=== PATIENT | male | born 1960 | race Caucasian/White ===

== ENCOUNTER 2021-05-06 20:49 | Emergency (ER) | payer OTHER, SELFPAY ==
[2021-05-06 21:01] VITALS: BP 145/93; PULSE 70; RESP 16; TEMP 36.8; O2SAT 97; BMI 25.1
--- NOTE | 2021-05-06 21:03 | DI.RAD.S_ITS ---
PROCEDURE: XR HAND LT MIN 3V INDICATIONS: punched trailer TECHNIQUE: 3 views of the hand(s) acquired. COMPARISON: None. FINDINGS: Bones: Mildly comminuted displaced fracture of the distal left 5th metacarpal with volar angulation of the distal fracture fragment. Moderate overlying soft tissue swelling. Carpal bones are normally aligned. No suspicious bony lesions. Soft tissues: No suspicious soft tissue calcifications. IMPRESSION: Distal left 5th metacarpal fracture. Dictated by: Mars Peterson M.D. on 05/06/2021 at 21:18 Approved by: Mars Peterson M.D. on 05/06/2021 at 21:19
[2021-05-06] MEDS: LIDO 1%/SOD BICARB 8.4% (10ML) 10 ML SYRINGE INJ (21:25)
--- NOTE | 2021-05-06 21:49 | ED_ITS ---
HPI - Extremity Injury (Upper) General Chief Complaint: Extremity Injury, Upper Stated Complaint: left hand injury Time Seen by Provider: 05/06/21 21:06 Source: patient and family Mode of arrival: Ambulatory Limitations: no limitations History of Present Illness HPI narrative: 61-year-old male nonsmoker with noncontributory medical history presents with a chief complaint of a left hand injury after he punched a boat motor. He developed immediate pain and swelling over the lateral hand. He denies any numbness or tingling in his fingers nor any pain in the wrist or elbow. There are no wounds or lacerations. He has increased pain with range of motion MD complaint: injury to: left Onset (ago): hour(s) Other Extremity Injury: Left: hand Other injuries: none Handedness: left Place: home Severity: moderate Relieving factors: immobilization Exacerbating factors: movement of extremity Context: direct blow Associated symptoms: denies other symptoms Related Data Allergies Allergy/AdvReac Type Severity Reaction Status Date / Time No Known Drug Allergies Allergy Verified 05/06/21 21:01 Review of Systems Constitutional Constitutional: Denies chills, Denies fatigue, Denies fever(s), Denies frequent falls, Denies lethargy and Denies weakness Eyes Eyes: Denies change in vision, Denies eye discharge, Denies irritation and Denies loss of vision ENT Ears, Nose, Mouth, and Throat: Denies change in voice, Denies dizziness, Denies neck pain, Denies sore throat and Denies throat swelling Cardiovascular Cardiovascular: Denies chest pain, Denies irregular heart rhythm, Denies lightheadedness, Denies palpitations, Denies dyspnea, Denies dyspnea on exertion and Denies orthopnea Respiratory Respiratory: Denies cough, Denies dyspnea, Denies dyspnea on exertion and Denies wheezing Gastrointestinal Gastrointestinal: Denies abdominal pain, Denies change in bowel habits, Denies diarrhea, Denies nausea and Denies vomiting Musculoskeletal Musculoskeletal: Reports deformity, Denies neck pain and Denies numbness Integumentary/Breasts Skin/Breast: Denies pruritus, Denies erythema, Denies rash and Denies wounds Neurologic Neurologic: Denies behavioral changes, Denies confusion, Denies dizziness, Denies frequent falls, Denies loss of vision, Denies numbness and Denies weakness Psychiatric Psychiatric: Denies anxiety, Denies behavioral changes, Denies confusion, Denies depression, Denies homicidal ideation and Denies suicidal ideation Endocrine Endocrine: Denies fatigue, Denies flushing and Denies palpitations Hematologic/Lymphatic Hematologic/Lymphatic: Denies easy bruising Allergic/Immunologic Allergic/Immunologic: Denies urticaria, Denies throat swelling and Denies wheezing Patient History Social History Smoking Status: Never smoker Smoking Status: Never smoker alcohol intake frequency: 0-2 drinks per day Substance Use Type: does not use Exam Narrative Exam Narrative: GEN: AOx3 and in mild distress EYES: Pupils are equal, round, and reactive to light and accommodation. Extraoccular muscles are intact bilaterally. There is no subconjunctival hemorrhage or exudate. CHEST: Lungs are clear to auscultation bilaterally and free of wheezes, rales, or rhonchi. Heart rate is regular rhythm, there are no murmurs, clicks, rubs, or gallops. There is no chest wall tenderness. ABD: Abdomen is soft and nontender. There is no guarding or rebound. Bowel sounds are normal in all 4 quadrants. There is no mass or organomegaly. EXT: Decreased range of motion secondary to pain of left hand with swelling overlying the 5th metacarpal. This is closed, isolated and neurovascularly intact, no pain over the wrist SKIN: Warm, pink, and dry. No erythema or rash Initial Vital Signs Initial Vital Signs: Vital Signs Temperature 98.3 F 05/06/21 21:01 Pulse Rate 70 05/06/21 21:01 Respiratory Rate 16 05/06/21 21:01 Blood Pressure 145/93 H 05/06/21 21:01 Pulse Oximetry 97 05/06/21 21:01 Procedures Nerve Block Nerve Block 1: Time out performed: Yes Local Anesthetic: lidocaine 1% and with bicarb Amount of anesthesia used (mL): 6 Side: left Nerve Blocks: hematoma block Procedure Successful: Yes Patient Tolerated Procedure: Well Complications: none Orthopedic Fracture Reduction Fracture #1: Time Out Performed: Yes Side: left Fracture Reduction Location: metacarpal Analgesia: hematoma block Technique: direct manipulation Post-reduction neuro exam: intact Post-reduction vascular exam: intact Splint Applied: Yes Patient Tolerated Procedure: Well Orthopedic Splinting/Casting Injury #1: Side: left Upper Extremity Injury Location: hand Upper Extremity Immobilizer: ulnar gutter (intrinsic plus) Post splinting neuro exam: intact Post splinting vascular exam: intact Placed by: Nursing Course Orders Ordered: ED Orders 05/06/21 21:03 XR hand LT min 3V Stat Discontinued Medications Lidocaine/Sodium Bicarbonate (Lido 1%/Sod Bicarb 8.4% (10ml) 10 Ml Syringe) 10 ml INJ NOW ONE Stop: 05/06/21 21:20 Last Admin: 05/06/21 21:25 Dose: 10 ml Documented by: SHAYNE Vital Signs Vital signs: Vital Signs - 8 hr 05/06/21 21:01 05/06/21 22:03 Temperature 98.3 F Pulse Rate 70 69 Respiratory Rate 16 16 Blood Pressure 145/93 H 140/89 Pulse Oximetry 97 100 MDM - Extremity Injury (Upper) Imaging Data Extremity x-ray #1: Radiologist's Impression: [address] [id number] ReportSigned Patient: Dat Harkins EMR#: [id number]: 1960cct:[id number]/Sex: 61 / MDate of Service: 05/06/21Loc: EDAccession Number: [id number] Procedure: XR hand LT min 3V Ordering Provider: Fuad Nunez D.O. PROCEDURE: XR HAND LT MIN 3V INDICATIONS: punched trailer TECHNIQUE: 3 views of the hand(s) acquired. COMPARISON: None. FINDINGS: Bones: Mildly comminuted displaced fracture of the distal left 5th metacarpal with volar angulation of the distal fracture fragment. Moderate overlying soft tissue swelling. Carpal bones are normally aligned. No suspicious bony lesions. Soft tissues: No suspicious soft tissue calcifications. IMPRESSION: Distal left 5th metacarpal fracture. Dictated by: Mars Peterson M.D. on 05/06/2021 at 21:18 Approved by: Mars Peterson M.D. on 05/06/2021 at 21:19 Discharge Plan Departure Patient Disposition: Home Clinical Impression: Fracture of fifth metacarpal bone of left hand Qualifiers: Encounter type: initial encounter Fracture type: closed Metacarpal location: shaft Fracture alignment: displaced Qualified Code(s): S62.327A - Displaced fracture of shaft of fifth metacarpal bone, left hand, initial encounter for closed fracture Instructions: DI for Fracture Activity Restrictions/Additional Instructions: *You have been diagnosed with [left fifth metacarpal fracture with minimal angulation ] *What to do: *Please continue to take your regular medications as directed. [ ] New medication prescriptions sent to your pharmacy: [ ] [ ] New medication written as a paper prescription [x ] No new medications given *Please follow up with your primary care provider in 2-3 days, call for an appointment. Let them know you were seen in the Emergency Department and that we ask that you be seen in follow up. We will electronically transmit a record of today's note if your PCP is in our system *If you do not have a primary care provider please contact the [facility] Resource line at [phone]. They will ask some questions about your medical history and help get you set up with a doctor in the community. *Return to Emergency Department if you should have any new, worsening or concerning symptoms, such as [fever greater than 101 F, shaking chills, worsening pain, persistent vomiting or other bothersome symptoms] Referrals: Amy Frederick MD [Physician] -
[2021-05-06 22:03] VITALS: BP 140/89; PULSE 69; RESP 16; O2SAT 100
== END 2021-05-06 22:04 | disposition home or self-care (01) ==
PROVIDERS: Emergency Provider Emergency Medicine
DX: S62.327A Displaced fracture of shaft of fifth metacarpal bone, left hand, initial encounter for closed fracture (principal); W22.8XXA Striking against or struck by other objects, initial encounter
CPT/HCPCS: 26742; 29125; 64450; 73130; 99284

== ENCOUNTER 2022-05-10 00:15 | Emergency (ER) | payer OTHER, SELFPAY ==
[2022-05-10 00:31] VITALS: BP 132/72; PULSE 102; RESP 22; TEMP 38.6; O2SAT 95
[2022-05-10 01:01] LABS: COVID19 -Nasal RAPID POSITIVE (Negative)
--- NOTE | 2022-05-10 01:14 | ED.URI ---
HPI - URI/Sore Throat General Chief Complaint: Fever Stated Complaint: cough, cold, fever, headache Time Seen by Provider: 05/10/22 00:37 Source: patient Mode of arrival: Ambulatory History of Present Illness HPI Narrative: Patient is a 8-year-old healthy male presents with fever cough headache. He says he has actually had a couple of cold over the last 3 weeks the 1st 1 lasted a few days he had fever it went away he felt better happened again he improved after few days this time he felt worse than he ever has fever headache sore throat mild cough. Ongoing for last 24 hours. Said he actually was able to work yesterday without any issue but today symptoms got much worse. He is noted to be febrile here in the ER. He said he took aspirin prior to arrival. Related Data Previous Rx's Medication Instructions Recorded nirmatrelvir 300 mg (150 mg x 2 tab PO QAM AND QPM 5 days #20 05/10/22 2)-ritonavir 100 mg tablet (EUA) tabs (Paxlovid 300 mg () Allergies Allergy/AdvReac Type Severity Reaction Status Date / Time No Known Drug Allergies Allergy Verified 05/06/21 21:01 Review of Systems Review of Systems Narrative: GENERAL: see HPI HEENT: See HPI RESPIRATORY: See HPI CARDIOVASCULAR: Denies chest pain, palpitations GASTROINTESTINAL: Denies nausea, vomiting MUSCULOSKELETAL: Denies extremity pain, injury SKIN: No rash, no laceration, no pruritus NEUROLOGIC: Denies weakness, dizziness, headache, numbness 8 point review of systems is negative except for those stated above and HPI Patient History Social History Smoking Status: Never smoker Smoking Status: Never smoker alcohol intake frequency: 0-2 drinks per day Substance Use Type: does not use Exam Initial Vital Signs Initial Vital Signs: Vital Signs Temperature 101.4 F H 05/10/22 00:31 Pulse Rate 102 H 05/10/22 00:31 Respiratory Rate 22 05/10/22 00:31 Blood Pressure 132/72 05/10/22 00:31 Pulse Oximetry 95 05/10/22 00:31 Oxygen Delivery Method 05/10/22 00:31 GENERAL: 62-year-old male appears a feel unwell but no acute distress HEENT: Head atraumatic,EOMI, pupils reactive, face symmetric, moist mucous membranes CARDIOVASCULAR: Regular rate and rhythm without murmurs, rubs or gallops. RESPIRATORY: Breath sounds equal bilaterally, no wheezes rales or rhonchi. ABDOMEN: Soft, nontender. Normoactive bowel sounds all 4 quadrants. No guarding or rebound. EXTREMITIES: Normal range of motion, no clubbing or edema. Neurovascularly intact NEUROLOGICAL: Alert and oriented x4. SKIN: Warm, dry, no laceration, no petechiae, no rashes or lesions. Course Orders Ordered: ED Orders 05/10/22 00:44 COVID19 -Nasal RAPID/Pre-Proc Stat Discontinued Medications Acetaminophen (Acetaminophen 325 Mg Tablet) 975 mg PO NOW ONE Stop: 05/10/22 01:26 Last Admin: 05/10/22 01:36 Dose: 975 mg Documented By: SARAH Vital Signs Vital signs: Vital Signs - 8 hr 05/10/22 00:31 05/10/22 01:41 Temperature 101.4 F H Pulse Rate 102 H 89 Respiratory Rate 22 18 Blood Pressure 132/72 Pulse Oximetry 95 98 Oxygen Delivery Method Room Air Room Air MDM - URI/Sore Throat Lab Data Labs: Lab Results 05/10/22 Range/Units 00:44 SARS-CoV-2 (PCR) Positive H (Negative) MDM Narrative Medical decision making narrative: The patient is found to be COVID positive. He said he took a COVID test 3 weeks ago was negative at that time he has repeated it. He is fully vaccinated. Discharge Plan Departure Patient Disposition: Home Clinical Impression: COVID-19 Instructions: DI for COVID-19 (Suspected or Confirmed ) Activity Restrictions/Additional Instructions: *You have been diagnosed with COVID-19 *What to do: Rest and monitor symptoms. Follow work policy and protocol before returning. *Continue to take medications as directed Paxlovid take as directed, this is emergency use authorization only side effects are not yet known Tylenol 1000 mg every 6 hours if needed for [id number] pain or fever Ibuprofen 600 mg every 6-8 hours if needed for pain or fever *Follow up with your primary care provider in 2-3 days or call [phone] *Return to ER if you should have inability to tolerate fluids, increasing shortness of breath, oxygen less than 90% or any new, worsening or concerning symptoms Prescriptions: New Paxlovid (EUA) 150 mg x 2- 100 mg tablet 2 tab PO QAM AND QPM 5 Days Qty: 20 0RF Visit Report Forms: Patient Portal/API
[2022-05-10] MEDS: ACETAMINOPHEN 325 MG TABLET 975 MG PO (01:36)
[2022-05-10 01:41] VITALS: PULSE 89; RESP 18; O2SAT 98
== END 2022-05-10 01:41 | disposition home or self-care (01) ==
PROVIDERS: Emergency Provider Emergency Medicine
DX: U07.1 COVID-19 (principal)
CPT/HCPCS: 87635; 99282; 99283; C9803

== ENCOUNTER → 2022-12-11 08:29 | Outpatient (CLI) | payer OTHER, SELFPAY ==
--- NOTE | 2022-12-11 08:31 | DI.RAD.S_ITS ---
PROCEDURE: XR RIBS LT MIN 3V W CXR1V INDICATIONS: Rib injury TECHNIQUE: 4 views of the left ribs were acquired, along with a single view chest. COMPARISON: None. FINDINGS: Surgical changes and devices: None. Bones and chest wall: Left 11th nondisplaced rib fracture. No dislocations. No suspicious bony lesions. Overlying soft tissues appear unremarkable. Lungs and pleura: No pleural effusions or pneumothorax. Lungs appear clear. Mediastinum: Mediastinal contours appear normal. Heart size is normal. IMPRESSION: Left 11th nondisplaced rib fracture. Dictated by: José Miguel Claros M.D. on 12/11/2022 at 9:01 Approved by: José Miguel Claros M.D. on 12/11/2022 at 9:04
== END ==
PROVIDERS: PCP Family Medicine; Referring Provider Nurse Practitioner Family; Visit Provider Nurse Practitioner Family
DX: S22.32XA Fracture of one rib, left side, initial encounter for closed fracture (principal); R07.81 Pleurodynia
CPT/HCPCS: 71101

== ENCOUNTER → 2023-12-09 12:08 | Outpatient (CLI) | payer OTHER, SELFPAY ==
[2023-12-09 12:52] LABS: Influenza A - CEPHEID Flu A POSITIVE (NEGATIVE); Influenza B - CEPHEID Flu B NEGATIVE (NEGATIVE); Respiratory Syncytial Virus Negative (Negative)
[2023-12-09 12:58] LABS: COVID-19 CEPHEID 4-PLEX PCR Negative (Negative)
== END ==
PROVIDERS: PCP Family Medicine; Visit Provider Nurse Practitioner Family
DX: R05.1 Acute cough (principal)
CPT/HCPCS: 0241U

== ENCOUNTER 2024-08-20 16:05 | Emergency (ER) | payer OTHER, SELFPAY ==
[2024-08-20 16:08] VITALS: BP 143/87; PULSE 78; RESP 14; TEMP 36.9; O2SAT 100; BMI 24.7
[2024-08-20 16:25] LABS: Add Manual Diff / Slide Review NO; Basophils Absolute Auto 0 /uL (0-100); Basophils Percent Auto 0.4 % (0-2); Eosinophils Absolute Auto 0 /uL (0-450); Eosinophils Percent Auto 0.3 % (2-4); Hematocrit 45.3 % (41-53); Hemoglobin 15.4 g/dL (13.5-17.5); Lymphocytes Absolute Auto 1800 /uL (1100-4500); Lymphocytes Percent Auto 19.5 % (25-40); Mean Corpuscular Hemoglobin 33.5 PG (26-34); Mean Corpuscular Volume 98.6 fL (80-100); Monocytes Absolute Auto 800 /uL (0-900); Monocytes Percent Auto 8.6 % (3-14); Neutrophils Absolute Auto 6500 /uL (1500-7000); Neutrophils Percent Auto 71.2 % (50-75); Platelet Count 261 X10^3/uL (150-400); Red Cell Distribution Width 12.7 % (11.6-14.8); White Blood Cell Count 9.1 X10^3/uL (4.5-11.0)
[2024-08-20 16:35] LABS: PTT Partial Thromboplastin Tim 29 SECONDS (25.1-36.5)
[2024-08-20 16:36] LABS: Alanine Aminotransferase 49 IU/L (<50); Albumin 4.5 g/dL (3.5-5.0); Albumin Globulin Ratio 1.4 (1.0-2.8); Alkaline Phosphatase 47 U/L (38-126); Aspartate Aminotransferase 39 IU/L (17-59); Bilirubin Total 0.9 mg/dL (0.2-1.3); Blood Urea Nitrogen 12 mg/dL (9-20); Calcium 9.3 mg/dL (8.4-10.2); Carbon Dioxide 27 mmol/L (22-32); Chloride 102 mmol/L (98-107); Estimated Glomerular Filt Rate > 60 mL/min (>60); Globulin 3.2 g/dL (1.7-4.1); Glucose 144 mg/dL (80-110); HEMOLYSIS < 15 (0-50); Potassium 3.9 mmol/L (3.4-5.1); Sodium 135 mmol/L (137-145); Total Protein 7.7 g/dL (6.3-8.2)
--- NOTE | 2024-08-20 16:36 | EKG_ITS ---
[place] [address] [place] [id number] Test Date: 2024-08-20 Pat Name: Dat Harkins Department: 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
[2024-08-20] MEDS: PANTOPRAZOLE 40 MG VIAL 80 MG IV (16:37)
--- NOTE | 2024-08-20 16:38 | EKG_ITS ---
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
[2024-08-20 16:40] VITALS: BP 119/74; PULSE 66; O2SAT 99
[2024-08-20 17:00] VITALS: BP 121/76; PULSE 61; RESP 17; O2SAT 100
--- NOTE | 2024-08-20 17:03 | ED.GIBLEED ---
HPI - GI Bleed General Chief complaint: GI Bleed Stated complaint: WIC; Food Poisoning or Flu, Blood in Stool Time Seen by Provider: 08/20/24 16:34 Source: patient Mode of arrival: Ambulatory History of Present Illness HPI Narrative: Patient is a 64 year old male no significant past medical history comes into the ED from home for evaluation of nausea vomiting abdominal pain diarrhea as well as bright red blood per rectum states that his symptoms started around 3:00 a.m. today. States that he had multiple episodes of nonbloody diarrhea initially, however he states that he had 1 episode in which he noticed some bright red blood after moving his bowels. Did not have any hematemesis or coffee-ground emesis. States that he has not had any recent travel did not eat anything new. States that he is wondering if this might have been secondary to food poisoning. However he states that he ate everything that family did yesterday without any issues. No recent travel no known sick contacts. Related Data Home Medications Medication Instructions Recorded Confirmed No Known Home Medications 12/11/22 12/09/23 Allergies Allergy/AdvReac Type Severity Reaction Status Date / Time No Known Drug Allergies Allergy Verified 08/20/24 16:08 Review of Systems Review of Systems Narrative: General: Denies fever, chills, weight loss HEENT: Denies headache, eye drainage, eye irritation, head trauma, sore throat, voice change Cardiovascular: Denies any chest pain, palpitations, shortness of breath, tachycardia Respiratory: Denies any shortness of breath, cough, wheeze, stridor GI/: Positive for abdominal pain, nausea, vomiting, diarrhea, bright red blood per rectum, denies melanotic stools, urinary frequency, urinary retention, dysuria, hematuria MSK: Denies any joint pain, muscle pains, swelling Skin: Denies any rashes, lesions, discoloration Neuro: Denies any headache, lightheadedness, dizziness, fainting, weakness Psych: Denies SI/HI Patient History Social History Smoking Status: Never smoker Smoking Status: Never smoker alcohol intake frequency: 3 or more drinks per day Alcohol type: beer Substance Use Type: does not use Exam Narrative Exam Narrative: General: Cooperative, comfortable, well-developed, not in acute distress HEENT: Normocephalic, atraumatic, PERRLA, normal sclera, eyelids normal, Neck: Active full range of motion, atraumatic Chest: Normal to inspection, negative crepitus, no overlying erythema ecchymosis Respiratory: Normal respiratory effort, not in acute respiratory distress, clear to auscultation bilaterally negative cough, wheeze, tachypnea, rhonchi, rales Cardiology: Regular rate rhythm negative gallop, murmur, rubs GI/: Normal to inspection, soft, nonrigid, mild tenderness to palpation diffusely, exam deferred MSK: Full range of active range of motion of all 4 extremities, atraumatic Skin: No rashes lesions noted Neuro: Alert awake oriented x3, moves all 4 extremities spontaneously, cranial nerves intact, able to answer all questions appropriately follows commands appropriately Psych: Cooperative, negative suicidal or homicidal ideations Initial Vital Signs Initial Vital Signs: Vital Signs Temperature 98.5 F 08/20/24 16:08 Pulse Rate 78 08/20/24 16:08 Respiratory Rate 14 08/20/24 16:08 Blood Pressure 143/87 H 08/20/24 16:08 Pulse Oximetry 100 08/20/24 16:08 Oxygen Delivery Method Room Air 08/20/24 16:08 Course Orders Ordered: ED Orders 08/20/24 16:11 EKG-12 Lead Stat 08/20/24 16:15 Complete Blood Count AUTO DIFF Stat Comprehensive Metabolic Panel Stat PTT Partial Thromboplastin Jorge A Stat Prothrombin Time INR Stat Type and Screen Stat 08/20/24 17:21 CT abdomen pelvis w con Stat 08/20/24 17:24 Covid-19 + FLU A/B + RSV - PCR Stat Ondansetron HCl (Ondansetron 4 Mg/2 Ml Inj) 4 mg IV NOW PRN PRN Reason: Nausea And Vomiting Ondansetron HCl (Ondansetron 4 Mg Odt) 4 mg SL NOW PRN PRN Reason: Nausea And Vomiting Discontinued Medications Pantoprazole Sodium (Pantoprazole 40 Mg Vial) 80 mg IV NOW ONE Stop: 08/20/24 16:12 Last Admin: 08/20/24 16:37 Dose: 80 mg Documented By: FRANNY Vital Signs Vital signs: Vital Signs - 8 hr 08/20/24 16:08 08/20/24 16:40 08/20/24 16:40 Temperature 98.5 F Pulse Rate 78 66 Respiratory Rate 14 Blood Pressure 143/87 H 119/74 Pulse Oximetry 100 99 Oxygen Delivery Method Room Air 08/20/24 17:00 08/20/24 17:00 08/20/24 18:00 Temperature Pulse Rate 61 60 Respiratory Rate 17 16 Blood Pressure 121/76 Pulse Oximetry 100 99 Oxygen Delivery Method 08/20/24 18:09 Temperature Pulse Rate Respiratory Rate Blood Pressure 142/82 H Pulse Oximetry Oxygen Delivery Method MDM - GI Bleed Differential Diagnosis Differential diagnosis: Likely hemorrhoids, infectious diarrhea, gastritis and other (Electrolyte abnormality) Lab Data 08/20/24 16:15 08/20/24 16:15 Labs: Lab Results 08/20/24 08/20/24 Range/Units 16:15 17:24 WBC 9.1 (4.5-11.0) X10^3/uL RBC 4.60 (4.5-5.9) X10^6/uL Hgb 15.4 (13.5-17.5) g/dL Hct 45.3 (41-53) % MCV 98.6 (80-100) fL MCH 33.5 (26-34) PG MCHC 34.0 (30-36) % RDW 12.7 (11.6-14.8) % Plt Count 261 (150-400) X10^3/uL Neut % (Auto) 71.2 (50-75) % Lymph % (Auto) 19.5 L (25-40) % [place] % (Auto) 8.6 (3-14) % Eos % (Auto) 0.3 L (2-4) % Baso % (Auto) 0.4 (0-2) % Neut # (Auto) 6500 (0747-5568) /uL Lymph # (Auto) 1800 (1527-7747) /uL [place] # (Auto) 800 (0-900) /uL Eos # (Auto) 0 (0-450) /uL Baso # (Auto) 0 (0-100) /uL PT 11.0 (9.4-12.5) SECONDS INR 1.0 (0.9-1.3) APTT 29 (25.1-36.5) SECONDS Sodium 135 L (137-145) mmol/L Potassium 3.9 (3.4-5.1) mmol/L Chloride 102 (98-107) mmol/L Carbon Dioxide 27 (22-32) mmol/L BUN 12 (9-20) mg/dL Creatinine 0.75 (0.66-1.25) mg/dL Estimated GFR > 60 (>60) mL/min BUN/Creatinine Ratio 16.0 (6-22) Glucose 144 H (80-110) mg/dL Calcium 9.3 (8.4-10.2) mg/dL Total Bilirubin 0.9 (0.2-1.3) mg/dL AST 39 (17-59) IU/L ALT 49 (<50) IU/L Alkaline Phosphatase 47 (38-126) U/L Total Protein 7.7 (6.3-8.2) g/dL Albumin 4.5 (3.5-5.0) g/dL Globulin 3.2 (1.7-4.1) g/dL Albumin/Globulin Ratio 1.4 (1.0-2.8) SARS-CoV-2 (PCR) Negative (Negative) Influenza A (RT-PCR) Flu a negative (NEGATIVE) Influenza B (RT-PCR) Flu b negative (NEGATIVE) RSV (PCR) Negative (Negative) Blood Type O Positive Antibody Screen Negative Imaging Data CT scan - abdomen/pelvis: Radiologist's Impression: PROCEDURE: CT ABDOMEN PELVIS W CON INDICATIONS: diffuse abd pain TECHNIQUE: After the administration of intravenous contrast, axial sections acquired from the lung bases to the pubic symphysis. Coronal and sagittal reformats were performed. For radiation dose reduction, the following was used: automated exposure control, adjustment of mA and/or kV according to patient size. COMPARISON: None. FINDINGS: Image quality: Diagnostic. Lower Chest: No significant findings. ABDOMEN: Liver: No solid mass. Gallbladder: No radiopaque gallstones or wall thickening. Biliary ducts: No biliary dilation. Pancreas: No ductal dilation. Spleen: Size is within normal limits. Adrenal Glands: No adrenal nodules. Kidneys and Ureters: 4 mm nonobstructing calculus at the inferior pole of the left kidney. Multiple parapelvic renal cysts. No hydronephrosis. No solid mass. No complex renal cystic lesion which requires follow up. Stomach and Bowel: Bowel wall thickening is seen in the rectum as well as the transverse, descending, and sigmoid colon. Mobile cecum is seen in the right upper quadrant. No pericecal inflammatory changes. Appendix is not well visualized. Peritoneum: No abnormal intraperitoneal fluid. No free air. Ventral Wall: No significant ventral hernia. Abdominal Nodes: No retroperitoneal or mesenteric adenopathy by size criteria. Vessels: Aorta and inferior vena cava are normal in size. PELVIS: Pelvic Organs: Unremarkable. Bladder: No bladder wall thickening, accounting for underdistention. Pelvic Nodes: No enlarged lymph nodes. Miscellaneous: Small fat containing right inguinal hernia. Bones: No aggressive osseous abnormality. Transitional spinal anatomy. 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 IMPRESSION: 1. Long segment bowel wall thickening involving the colon and rectum is suspicious for a nonspecific proctocolitis. 2. Non-obstructing 4 mm calculus at the inferior pole of the left kidney. No hydronephrosis. MDM Narrative Medical decision making narrative: Patient is a 64-year-old male no significant past medical history presents for abdominal pain nausea vomiting diarrhea and bright red blood per rectum. Started at around 3:00 a.m.. Hemoglobin stable 15.4. Chemistry normal without any signs of [place]SEM[place]. CT scan showing possible proctocolitis but no acute abnormalities, this would be consistent with patient's history of 1 episode of bright red blood per rectum with persistent diarrhea. Patient hemodynamically stable, no electrolyte abnormality will be safe for discharge home with outpatient follow up Discharge Plan Departure Patient Disposition: Home Clinical Impression: Proctocolitis Activity Restrictions/Additional Instructions: Please read the discharge instructions sheet carefully and bring all papers to all doctor follow-up visits, as it may contain information that your doctor may want to see. Disease processes change and evolve, if your symptoms worsen or if you develop any new symptoms that are concerning to you please return for evaluation. Your evaluation today does not show any evidence of any life-threatening/serious illnesses requiring admission to the hospital or surgery. Please follow-up with your doctor for re-evaluation in approximately 1 day. Seek immediate medical attention for any worrisome symptoms. Prescriptions: No Action No Known Home Medications Referrals: Shakeel Marsh MD [Primary Care Provider] - Stand Alone Forms: Patient Portal/API
--- NOTE | 2024-08-20 17:21 | DI.CT.S_ITS ---
PROCEDURE: CT ABDOMEN PELVIS W CON INDICATIONS: diffuse abd pain TECHNIQUE: After the administration of intravenous contrast, axial sections acquired from the lung bases to the pubic symphysis. Coronal and sagittal reformats were performed. For radiation dose reduction, the following was used: automated exposure control, adjustment of mA and/or kV according to patient size. COMPARISON: None. FINDINGS: Image quality: Diagnostic. Lower Chest: No significant findings. ABDOMEN: Liver: No solid mass. Gallbladder: No radiopaque gallstones or wall thickening. Biliary ducts: No biliary dilation. Pancreas: No ductal dilation. Spleen: Size is within normal limits. Adrenal Glands: No adrenal nodules. Kidneys and Ureters: 4 mm nonobstructing calculus at the inferior pole of the left kidney. Multiple parapelvic renal cysts. No hydronephrosis. No solid mass. No complex renal cystic lesion which requires follow up. Stomach and Bowel: Bowel wall thickening is seen in the rectum as well as the transverse, descending, and sigmoid colon. Mobile cecum is seen in the right upper quadrant. No pericecal inflammatory changes. Appendix is not well visualized. Peritoneum: No abnormal intraperitoneal fluid. No free air. Ventral Wall: No significant ventral hernia. Abdominal Nodes: No retroperitoneal or mesenteric adenopathy by size criteria. Vessels: Aorta and inferior vena cava are normal in size. PELVIS: Pelvic Organs: Unremarkable. Bladder: No bladder wall thickening, accounting for underdistention. Pelvic Nodes: No enlarged lymph nodes. Miscellaneous: Small fat containing right inguinal hernia. Bones: No aggressive osseous abnormality. Transitional spinal anatomy. 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 IMPRESSION: 1. Long segment bowel wall thickening involving the colon and rectum is suspicious for a nonspecific proctocolitis. 2. Non-obstructing 4 mm calculus at the inferior pole of the left kidney. No hydronephrosis. Approved by: Freddy Abdi M.D. on 08/20/2024 at 17:51
[2024-08-20 18:00] VITALS: PULSE 60; RESP 16; O2SAT 99
[2024-08-20 18:06] LABS: Influenza A - CEPHEID Flu A NEGATIVE (NEGATIVE); Influenza B - CEPHEID Flu B NEGATIVE (NEGATIVE); Respiratory Syncytial Virus Negative (Negative)
[2024-08-20 18:09] VITALS: BP 142/82
[2024-08-20 18:16] LABS: COVID-19 CEPHEID 4-PLEX PCR Negative (Negative)
== END 2024-08-20 18:29 | disposition home or self-care (01) ==
PROVIDERS: Emergency Provider Student in an Organized Health Care Education/Training Program; PCP Family Medicine
DX: K52.9 Noninfective gastroenteritis and colitis, unspecified (principal); R10.9 Unspecified abdominal pain; R11.2 Nausea with vomiting, unspecified; Z11.52 Encounter for screening for COVID-19
CPT/HCPCS: 0241U; 36415; 74177; 80053; 85025; 85610; 85730; 86850; 86900; 86901; 93005; 96374; 99284; J2470; Q9967

== ENCOUNTER 2025-03-11 12:00 | Emergency (ER) | payer OTHER, SELFPAY ==
[2025-03-11 12:17] VITALS: BP 159/83; PULSE 75; RESP 20; TEMP 36.6; O2SAT 100; BMI 19.5
--- NOTE | 2025-03-11 12:57 | ED.OVERDOSE ---
HPI - Overdose <Randee Ruffin PA-C - Last Filed: 03/11/25 18:10> General Chief Complaint: Toxicology Problem Stated Complaint: mushroom poisoning Time Seen by Provider: 03/11/25 12:27 Source: patient Mode of arrival: Ambulatory History of Present Illness HPI Narrative: Mr. Harkins is a very pleasant 65-year-old gentleman with no reported past medical history who presents to the emergency department 3 hours after consuming mushrooms from his backyard, now concern for mushroom poisoning. Patient states he often eats mushrooms from his property, this morning he farmed and ate two mushrooms that were white with brown tops, chopped them up and put them in an omelet with eggs cheese and drank ice tea. About 1 hour after consuming the omelet he started to feel ?high?. Reports that he feels extremely euphoric, seeing abnormal visuals, and feeling slightly anxious. States that he feels the same way he did when he did acid in 1984. He is concerned that he ate hallucinogenic mushrooms accidentally. He denies any fall or head trauma, any pain, any new foods or drinks besides the mushrooms, no alcohol or other drugs. He did drive himself to the emergency department. He denies any numbness, tingling, weakness. No nausea or vomiting however he did try to self induce vomiting as he reports that he was supposed to have a very productive day. Related Data Home Medications Medication Instructions Recorded Confirmed No Known Home Medications 12/11/22 12/09/23 Allergies Allergy/AdvReac Type Severity Reaction Status Date / Time No Known Drug Allergies Allergy Verified 08/20/24 16:08 Review of Systems <Randee Ruffin PA-C - Last Filed: 03/11/25 18:10> Review of Systems ROS Unobtainable: All systems reviewed & are unremarkable except as noted in HPI and below Patient History <Randee Ruffin PA-C - Last Filed: 03/11/25 18:10> Social History Smoking Status: Never smoker Smoking Status: Never smoker alcohol intake frequency: 3 or more drinks per day Alcohol type: beer Exam <Randee Ruffin PA-C - Last Filed: 03/11/25 18:10> Narrative Exam Narrative: GENERAL: 65 year old patient appears stated age. Well-developed patient, in no acute distress. HEAD: Atraumatic. Normocephalic. EYES: PERRL. Extraocular motions intact. No scleral icterus. No injection or drainage. NECK: Trachea midline. Cervical ROM intact. CARDIOVASCULAR: Regular rate and rhythm. RESPIRATORY: ?Nonlabored respirations. ?Speaking in clear, full sentences. ?Clear to auscultation. Breath sounds equal bilaterally. No wheezes, rales, or rhonchi. ? EXTREMITIES: No edema or joint tenderness. NEURO: AOx3. ?Clear speech. ?Moves all 4 extremities appropriately. No facial asymmetry. Bilateral upper and lower extremity strength intact and sensation intact to light touch. SKIN: No rash or erythema of visible areas Initial Vital Signs Initial Vital Signs: Vital Signs Temperature 98 F 03/11/25 12:17 Pulse Rate 75 03/11/25 12:17 Respiratory Rate 20 03/11/25 12:17 Blood Pressure 159/83 H 03/11/25 12:17 Pulse Oximetry 100 03/11/25 12:17 Oxygen Delivery Method Room Air 03/11/25 12:17 <Mars Orozco MD - Last Filed: 04/17/25 00:07> Initial Vital Signs Initial Vital Signs: Vital Signs Temperature 98 F 03/11/25 12:17 Pulse Rate 75 03/11/25 12:17 Respiratory Rate 20 03/11/25 12:17 Blood Pressure 159/83 H 03/11/25 12:17 Pulse Oximetry 100 03/11/25 12:17 Oxygen Delivery Method Room Air 03/11/25 12:17 Course <Randee Ruffin PA-C - Last Filed: 03/11/25 18:10> Orders Ordered: Discontinued Medications Sodium Chloride (Normal Saline 0.9%) 1,000 mls @ 1,000 mls/hr IV BOLUS ONE Stop: 03/11/25 15:05 Last Infusion: 03/11/25 15:17 Dose: Infused Documented By: Admin: 03/11/25 14:11 Dose: 1,000 mls/hr Documented By: RAYMUNDO Consultations Consultation #1: Nursing Staff called poison control Center, they received emailed photo of the mushrooms, they believe that mushroom is possibly Amanita pantina. This mushroom species can generally cause delirium, confusion, increased heart rate, tremors, and rare scenarios it can cause convulsions, seizures. There is no antidote. In rare situations 12 hours later there can be, or state of exhaustion. They recommend benzos and supportive care, avoid atropine. Time: 15:00 Vital Signs Vital signs: Vital Signs - 8 hr 03/11/25 12:17 03/11/25 14:06 03/11/25 15:22 Temperature 98 F 97.5 F L 97.5 F L Pulse Rate 75 67 67 Respiratory Rate 20 16 20 Blood Pressure 159/83 H 124/62 122/70 Pulse Oximetry 100 98 99 Oxygen Delivery Method Room Air Room Air Room Air 03/11/25 17:30 Temperature 98.9 F Pulse Rate 65 Respiratory Rate 16 Blood Pressure 135/68 Pulse Oximetry 97 Oxygen Delivery Method Room Air <Mars Orozco MD - Last Filed: 04/17/25 00:07> Orders Ordered: Discontinued Medications Sodium Chloride (Normal Saline 0.9%) 1,000 mls @ 1,000 mls/hr IV BOLUS ONE Stop: 03/11/25 15:05 Last Infusion: 03/11/25 15:17 Dose: Infused Documented By: Admin: 03/11/25 14:11 Dose: 1,000 mls/hr Documented By: RAYMUNDO Vital Signs Vital signs: Vital Signs - 8 hr 03/11/25 12:17 03/11/25 14:06 03/11/25 15:22 Temperature 98 F 97.5 F L 97.5 F L Pulse Rate 75 67 67 Respiratory Rate 20 16 20 Blood Pressure 159/83 H 124/62 122/70 Pulse Oximetry 100 98 99 Oxygen Delivery Method Room Air Room Air Room Air 03/11/25 17:30 Temperature 98.9 F Pulse Rate 65 Respiratory Rate 16 Blood Pressure 135/68 Pulse Oximetry 97 Oxygen Delivery Method Room Air MDM - Overdose <Randee uRffin PA-C - Last Filed: 03/11/25 18:10> Medical Records Attestation: I reviewed the patient's medical records. Medical records narrative: Prior ED visit 08/20/2024, 05/10/2022, 05/06/2021. Lab Data 03/11/25 13:20 03/11/25 13:20 Labs: Lab Results 03/11/25 03/11/25 Range/Units 13:20 13:25 WBC 10.2 (4.5-11.0) X10^3/uL RBC 4.45 L (4.5-5.9) X10^6/uL Hgb 14.9 (13.5-17.5) g/dL Hct 43.4 (41-53) % MCV 97.3 (80-100) fL MCH 33.5 (26-34) PG MCHC 34.4 (30-36) % RDW 13.5 (11.6-14.8) % Plt Count 244 (150-400) X10^3/uL Neut % (Auto) 75.0 (50-75) % Lymph % (Auto) 15.5 L (25-40) % Burt % (Auto) 7.6 (3-14) % Eos % (Auto) 1.7 L (2-4) % Baso % (Auto) 0.2 (0-2) % Neut # (Auto) 7700 H (8903-4413) /uL Lymph # (Auto) 1600 (8606-0169) /uL Burt # (Auto) 800 (0-900) /uL Eos # (Auto) 200 (0-450) /uL Baso # (Auto) 0 (0-100) /uL Sodium 138 (137-145) mmol/L Potassium 4.0 (3.4-5.1) mmol/L Chloride 104 (98-107) mmol/L Carbon Dioxide 24 (22-32) mmol/L BUN 18 (9-20) mg/dL Creatinine 0.76 (0.66-1.25) mg/dL Estimated GFR > 60 (>60) mL/min BUN/Creatinine Ratio 23.7 H (6-22) Glucose 147 H (70-99) mg/dL Calcium 9.1 (8.4-10.2) mg/dL Total Bilirubin 0.7 (0.2-1.3) mg/dL AST 52 (17-59) IU/L ALT 53 H (<50) IU/L Alkaline Phosphatase 55 (38-126) U/L Total Protein 7.2 (6.3-8.2) g/dL Albumin 4.5 (3.5-5.0) g/dL Globulin 2.7 (1.7-4.1) g/dL Albumin/Globulin Ratio 1.7 (1.0-2.8) U Opiates 300ng/mL cut Negative (Negative) Ur Oxycodone Screen Negative (Negative) Urine Methadone Screen Negative (Negative) Ur Barbiturates Screen Negative (Negative) U Tricyclic Antidepress Negative (Negative) Ur Phencyclidine Scrn Negative (Negative) Ur Amphetamines Screen Negative (Negative) U Methamphetamines Scrn Negative (Negative) Ur MDMA Scrn (Ecstasy) Negative (Negative) U Benzodiazepines Scrn Negative (Negative) Urine Cocaine Screen Negative (Negative) U Marijuana (THC) Screen Negative (Negative) Urine pH Normal (Normal) Urine Specific [place] Normal (Normal) Ethyl Alcohol < 10 ( - 10) mg/dL Ur Creatinine Normal (Normal) Urine Dip Bedside Urine Glucose Negative Bedside Urine Bilirubin - Negative Bedside Urine Ketone +/- 5 Urine Specific [place] 1.025 Bedside Urine Occult Blood - Negative Bedside Urine pH 6.0 Bedside Urine Protein - Negative Bedside Urine Urobilinogen - Negative Bedside Urine Nitrite - Negative Bedside Urine Leukocytes - Negative Esterase MDM Narrative Medical decision making narrative: 65-year-old gentleman with no reported past medical history who presents to the emergency department 3 hours after consuming mushrooms from his backyard, now concern for mushroom poisoning. Differential diagnosis includes but is not limited to consumption of hallucinogenic mushroom, altered mental status, Toxicology problem, poison this mushroom, renal or liver impairment, hyperglycemia, hypoglycemia, etc. On exam patient is in no acute distress, nontoxic appearing, vital signs appropriate. He is alert and oriented, no focal neurologic deficits, however he does report feeling extremely high, euphoric after consuming wild mushrooms. Poison control was contacted, we will e-mail them a picture of the mushrooms, recommended CBC CMP in 6 hours of monitoring at this time, can use antiemetics or benzodiazepines if needed. Labs reveal normal WBC count of 10.2, hemoglobin 14.9, hematocrit 43.4. Normal platelets 244. Sodium 138, potassium 4.0. Creatinine is 0.76, BUN 18, slightly elevated BUN/creatinine ratio of 23.7, 1 L IV fluids ordered. Glucose is 147. AST 52, ALT 53 (was 49 in August 2024). Ethyl alcohol negative. Point of care UA shows trace ketones, no signs of infection. Case was discussed with the poison control, they think may have been an Amanita pantherina mushroom which is toxic, recommended supportive care fluids benzos if needed for seizure-like activity or agitation, states that typically symptoms resolve within 6 hours but can have a 12 hour rebound. Patient's symptoms continue to improve significantly throughout his emergency department stay, he refuses to stay for a full 12 hours and instead will leave after 6 hours with a family friend. I did encourage him to stay as he does live home alone however he refuses, verbalized understanding of risk. Advised to have repeat lab work in 48 hours with PCP to check kidney and liver function, strict ED return precautions discussed. Patient feeling much better, verbalized understanding of all information and risks, he is agreeable with the plan and stable for discharge home with a friend drive him. Naloxone at Discharge Meets criteria for naloxone at discharge?: No <Mars Orozco MD - Last Filed: 04/17/25 00:07> Lab Data Labs: Lab Results 03/11/25 03/11/25 Range/Units 13:20 13:25 WBC 10.2 (4.5-11.0) X10^3/uL RBC 4.45 L (4.5-5.9) X10^6/uL Hgb 14.9 (13.5-17.5) g/dL Hct 43.4 (41-53) % MCV 97.3 (80-100) fL MCH 33.5 (26-34) PG MCHC 34.4 (30-36) % RDW 13.5 (11.6-14.8) % Plt Count 244 (150-400) X10^3/uL Neut % (Auto) 75.0 (50-75) % Lymph % (Auto) 15.5 L (25-40) % Burt % (Auto) 7.6 (3-14) % Eos % (Auto) 1.7 L (2-4) % Baso % (Auto) 0.2 (0-2) % Neut # (Auto) 7700 H (3660-5088) /uL Lymph # (Auto) 1600 (8502-1489) /uL Burt # (Auto) 800 (0-900) /uL Eos # (Auto) 200 (0-450) /uL Baso # (Auto) 0 (0-100) /uL Sodium 138 (137-145) mmol/L Potassium 4.0 (3.4-5.1) mmol/L Chloride 104 (98-107) mmol/L Carbon Dioxide 24 (22-32) mmol/L BUN 18 (9-20) mg/dL Creatinine 0.76 (0.66-1.25) mg/dL Estimated GFR > 60 (>60) mL/min BUN/Creatinine Ratio 23.7 H (6-22) Glucose 147 H (70-99) mg/dL Calcium 9.1 (8.4-10.2) mg/dL Total Bilirubin 0.7 (0.2-1.3) mg/dL AST 52 (17-59) IU/L ALT 53 H (<50) IU/L Alkaline Phosphatase 55 (38-126) U/L Total Protein 7.2 (6.3-8.2) g/dL Albumin 4.5 (3.5-5.0) g/dL Globulin 2.7 (1.7-4.1) g/dL Albumin/Globulin Ratio 1.7 (1.0-2.8) U Opiates 300ng/mL cut Negative (Negative) Ur Oxycodone Screen Negative (Negative) Urine Methadone Screen Negative (Negative) Ur Barbiturates Screen Negative (Negative) U Tricyclic Antidepress Negative (Negative) Ur Phencyclidine Scrn Negative (Negative) Ur Amphetamines Screen Negative (Negative) U Methamphetamines Scrn Negative (Negative) Ur MDMA Scrn (Ecstasy) Negative (Negative) U Benzodiazepines Scrn Negative (Negative) Urine Cocaine Screen Negative (Negative) U Marijuana (THC) Screen Negative (Negative) Urine pH Normal (Normal) Urine Specific [place] Normal (Normal) Ethyl Alcohol < 10 ( - 10) mg/dL Ur Creatinine Normal (Normal) Urine Dip Bedside Urine Glucose Negative Bedside Urine Bilirubin - Negative Bedside Urine Ketone +/- 5 Urine Specific [place] 1.025 Bedside Urine Occult Blood - Negative Bedside Urine pH 6.0 Bedside Urine Protein - Negative Bedside Urine Urobilinogen - Negative Bedside Urine Nitrite - Negative Bedside Urine Leukocytes - Negative Esterase MDM Narrative Medical decision making narrative: 65-year-old gentleman with no reported past medical history who presents to the emergency department 3 hours after consuming mushrooms from his backyard, now concern for mushroom poisoning. Differential diagnosis includes but is not limited to consumption of hallucinogenic mushroom, altered mental status, Toxicology problem, poison this mushroom, renal or liver impairment, hyperglycemia, hypoglycemia, etc. On exam patient is in no acute distress, nontoxic appearing, vital signs appropriate. He is alert and oriented, no focal neurologic deficits, however he does report feeling extremely high, euphoric after consuming wild mushrooms. Poison control was contacted, we will e-mail them a picture of the mushrooms, recommended CBC CMP in 6 hours of monitoring at this time, can use antiemetics or benzodiazepines if needed. Labs reveal normal WBC count of 10.2, hemoglobin 14.9, hematocrit 43.4. Normal platelets 244. Sodium 138, potassium 4.0. Creatinine is 0.76, BUN 18, slightly elevated BUN/creatinine ratio of 23.7, 1 L IV fluids ordered. Glucose is 147. AST 52, ALT 53 (was 49 in August 2024). Ethyl alcohol negative. Point of care UA shows trace ketones, no signs of infection. Case was discussed with the poison control, they think may have been an Amanita pantherina mushroom which is toxic, recommended supportive care fluids benzos if needed for seizure-like activity or agitation, states that typically symptoms resolve within 6 hours but can have a 12 hour rebound. Patient's symptoms continue to improve significantly throughout his emergency department stay, he refuses to stay for a full 12 hours and instead will leave after 6 hours with a family friend. I did encourage him to stay as he does live home alone however he refuses, verbalized understanding of risk. Advised to have repeat lab work in 48 hours with PCP to check kidney and liver function, strict ED return precautions discussed. Patient feeling much better, verbalized understanding of all information and risks, he is agreeable with the plan and stable for discharge home with a friend drive him. -patient was seen by ZARINA in conjunction with myself, I was available for consultation and helped guide laboratory evaluation. Ultimately patient refused to stay for full observation but was agreeable to following up with outpatient repeat labs. We discussed the risks involved with this decision however at this time patient is alert well-appearing and capable of making his own medical decisions. Discharge Plan Departure Patient Disposition: Home Clinical Impression: Mushrooms causing toxic effect Instructions: DI for Altered Mental Status Activity Restrictions/Additional Instructions: Dear Torin, Today you were evaluated after side effects from consuming mushrooms. We discussed your case with poison control and the concern was that you consumed an Amanita pantherina mushroom which caused your side effects. We are very happy that you are feeling much better. Please understand that there is risk in leaving the emergency department as symptoms could rebound of the 12 hour vick. Please if you develop any new or worsening symptoms return to the emergency department or call 911 to return by ambulance. Please rest, hydrate, call your primary care doctor to have repeat lab work in the next 48-72 hours to recheck on your kidney and liver function. Please increase hydration, rest, avoid driving the car operating heavy machinery while feeling under the influence of any substances. Avoid any drugs or alcohol for at least the next few days. Please follow up with your primary care doctor within the next 2-3 days for ER follow-up. (If you do not have a PCP you can call [phone]. ?to schedule an appointment with an [facility] Primary Care Provider) IF YOU DEVELOP ANY NEW OR WORSENING SYMPTOMS, RETURN TO THE ER! Please read the attached instructions, they highlight more specific treatments and interventions for you at home. Thank you for letting me participate in your care, Randee Ruffin PA-C Prescriptions: No Action No Known Home Medications Referrals: Shakeel Marsh MD [Primary Care Provider] - Stand Alone Forms: Patient Portal/API/Survey
[2025-03-11 13:40] LABS: Add Manual Diff / Slide Review NO; Basophils Absolute Auto 0 /uL (0-100); Basophils Percent Auto 0.2 % (0-2); Eosinophils Absolute Auto 200 /uL (0-450); Eosinophils Percent Auto 1.7 % (2-4); Hematocrit 43.4 % (41-53); Hemoglobin 14.9 g/dL (13.5-17.5); Lymphocytes Absolute Auto 1600 /uL (1100-4500); Lymphocytes Percent Auto 15.5 % (25-40); Mean Corpuscular HGB Conc 34.4 % (30-36); Mean Corpuscular Hemoglobin 33.5 PG (26-34); Mean Corpuscular Volume 97.3 fL (80-100); Monocytes Absolute Auto 800 /uL (0-900); Monocytes Percent Auto 7.6 % (3-14); Neutrophils Absolute Auto 7700 /uL (1500-7000); Platelet Count 244 X10^3/uL (150-400); Red Blood Cell Count 4.45 X10^6/uL (4.5-5.9); Red Cell Distribution Width 13.5 % (11.6-14.8); White Blood Cell Count 10.2 X10^3/uL (4.5-11.0)
[2025-03-11 13:52] LABS: Ethanol (ETOH) < 10 mg/dL
[2025-03-11 14:03] LABS: Alanine Aminotransferase 53 IU/L (<50); Albumin 4.5 g/dL (3.5-5.0); Albumin Globulin Ratio 1.7 (1.0-2.8); Alkaline Phosphatase 55 U/L (38-126); Aspartate Aminotransferase 52 IU/L (17-59); BUN Creatinine Ratio 23.7 (6-22); Bilirubin Total 0.7 mg/dL (0.2-1.3); Blood Urea Nitrogen 18 mg/dL (9-20); Calcium 9.1 mg/dL (8.4-10.2); Carbon Dioxide 24 mmol/L (22-32); Chloride 104 mmol/L (98-107); Estimated Glomerular Filt Rate > 60 mL/min (>60); Globulin 2.7 g/dL (1.7-4.1); Glucose 147 mg/dL (70-99); HEMOLYSIS 25 (0-50); Sodium 138 mmol/L (137-145); Total Protein 7.2 g/dL (6.3-8.2)
[2025-03-11 14:06] VITALS: BP 124/62; PULSE 67; RESP 16; TEMP 36.4; O2SAT 98
[2025-03-11] MEDS: SODIUM CHLORIDE 0.9% 1,000 ML 1000 ML IV (14:11)
[2025-03-11 14:21] LABS: Ur Creatinine Normal (Normal); Ur Specific Gravity Normal (Normal); Urine Amphetamines Negative (Negative); Urine Cocaine Negative (Negative); Urine Opiates Negative (Negative); Urine THC Negative (Negative); Urine pH Normal (Normal)
[2025-03-11 14:22] LABS: Urine Barbiturates Negative (Negative); Urine Benzodiazepines Negative (Negative); Urine MDMA Negative (Negative); Urine Methadone Negative (Negative); Urine Oxycodone Negative (Negative); Urine Phencyclidine Negative (Negative); Urine Tricyclic Antidepressant Negative (Negative)
[2025-03-11 15:22] VITALS: BP 122/70; PULSE 67; RESP 20; TEMP 36.4; O2SAT 99
[2025-03-11 17:30] VITALS: BP 135/68; PULSE 65; RESP 16; TEMP 37.2; O2SAT 97
== END 2025-03-11 17:32 | disposition home or self-care (01) ==
PROVIDERS: Emergency Provider Physician Assistant; PCP Family Medicine
DX: T62.0X1A Toxic effect of ingested mushrooms, accidental (unintentional), initial encounter (principal)
CPT/HCPCS: 36415; 80053; 80305; 80320; 81003; 85025; 96360; 99284